=== PATIENT | female | born 1950 | race Caucasian/White ===

== ENCOUNTER → 2025-06-30 17:41 | Outpatient (REF) | payer MEDICARE, OTHER, SELFPAY ==
[2025-06-30 18:15] LABS: Hematocrit 37.5 % (37.0-47.0); Hemoglobin 12.7 g/dL (12.0-16.0); Mean Corp Hgb Conc. 33.9 g/dL (33.0-37.0); Mean Corpuscular Volume 94.2 fL (81.0-99.0); Nucleated Red Blood Cells % 1.0 %; Platelet Count 200 10^3/uL (130-400); Red Cell Dist. Width 12.3 % (11.5-14.5)
[2025-06-30 18:27] LABS: Blood Urea Nitrogen 17 mg/dl (7-17); Calcium 8.9 mg/dl (8.4-10.2); Carbon Dioxide 27 mmol/L (22-30); Chloride 105 mmol/L (98-107); Glucose 79 mg/dl (70-99); HDL Cholesterol 61 mg/dl; LDL Cholesterol, Calculated 126 mg/dl; Potassium 4.0 mmol/L (3.5-5.1); Sodium 139 mmol/L (135-145); Very Low Density Lipoprotein 25 mg/dl (0-30); eGFR > 60.00
[2025-06-30 18:45] LABS: Vitamin D, 25-OH*** 39.8 ng/mL (30-80)
[2025-06-30 18:58] LABS: TSH 1.08 uIU/ml (0.47-4.68)
[2025-07-01 12:20] LABS: Glycohemoglobin (HgbA1c) 5.5 % (4.0-5.6)
== END ==
LOC: OLABSOL 17:41
PROVIDERS: ATTENDING PHYSICIAN Nurse Practitioner Adult Health
DX: E11.65 Type 2 diabetes mellitus with hyperglycemia (principal); R73.03 Prediabetes; E55.9 Vitamin D deficiency, unspecified; R94.6 Abnormal results of thyroid function studies; R79.9 Abnormal finding of blood chemistry, unspecified
CPT/HCPCS: 36415; 80048; 80061; 82306; 83036; 84439; 84443; 85025

== ENCOUNTER 2025-08-13 01:04 | Emergency (ER) | payer MEDICARE, OTHER, SELFPAY ==
[2025-08-13 01:06] VITALS: BP 143/66
--- NOTE | 2025-08-13 01:59 | ED.GENMED ---
History of Present Illness
General
Chief Complaint: Skin Problem
Source: patient
Exam Limitations: none
Time Seen by Provider: 08/13/25 01:25
History of Present Illness
History of Present Illness:
See MDM
Past History
Past History
ED Past Medical History: None
ED Past Surgical History: None
Social History
Tobacco: Non-smoker
Alcohol: None
Phy Exam
Physical Exam
Physical Exam:
See MDM
Course
Orders/Labs/Results
Orders:
Orders
08/13/25 01:57
Dexamethasone Pf [Decadron] 10 mg PO NOW STA
Ibuprofen [Motrin] 600 mg PO NOW STA
Sulfamethox./Trimethoprim Ds [Bactrim Ds 800 mg/160 mg] 1 tablet PO NOW STA
Vital Signs
Initial and Last Documented VS:
Initial Vital Signs
Temp Pulse Resp BP Pulse Ox
98.5 F 87 16 143/66 96
08/13/25 01:06 08/13/25 01:06 08/13/25 01:06 08/13/25 01:06 08/13/25 01:06
Last Documented Vital Signs
Temp Pulse Resp BP Pulse Ox
98.5 F 82 18 143/66 95
08/13/25 01:06 08/13/25 01:15 08/13/25 01:15 08/13/25 01:06 08/13/25 01:15
MDM/Problems Addressed
Differential Diagnosis Includes:
Note:
CHIEF COMPLAINT(S)
Facial redness and blistering, with what appears to be an infected rash on the face.
HISTORY OF PRESENT ILLNESS
The patient is a 74-year-old female presenting with a facial rash characterized by redness, blistering, and what appears to be an infection. Two weeks ago, she developed some redness around her mouth for which she was given a cream, possibly
Kenalog. There is now worsening of symptoms with yellow crusting and blistering over her forehead and chin. The yellow crusting began in the last 48 hours. She describes the area as painful and bothersome.
The patient reports possible sensitivity to sunscreen and is also allergic to penicillin. There is no significant past medical history of autoimmune disorders such as lupus. There are no known kidney issues. The infections have made the patient feel
much older and weaker.
On inquiry, she denies any blistering or issues with her hands, indicating that the rash is localized to her face, with no reported similar reaction in her life. The infection could be caused by a secondary bacterial invasion of the rash,
potentially impetigo or cellulitis.
PAST MEDICAL AND SURGICAL HISTORY
No significant history of autoimmune conditions like lupus reported. Allergic to penicillin.
SOCIAL DETERMINANTS OF HEALTH
The patient is concerned about susceptibility due to a potential breakdown of skin barriers, but there are no specific social determinants affecting her current health status noted in the visit.
PHYSICAL EXAM
General: Alert, no acute distress.
Skin: Warm, dry. - Yellow crusting and blistering present on the forehead and chin. - Redness and swelling noted in the affected areas.
Head: Normocephalic, atraumatic
Neck: Appears supple, trachea midline.
Eyes, Ears, Nose, Mouth, and Throat: Moist mucous membranes
Cardiovascular: No signs of cyanosis
Respiratory: Respirations are non-labored.
Abdomen: Non-distended
Musculoskeletal: No deformities
Neurological: No focal neurological deficit observed.
Psychiatric: Cooperative, appropriate mood and affect.
PLAN
- Start treatment with antibiotics, specifically trimethoprim-sulfamethoxazole (Bactrim), to address possible skin infection.
- Administer a dose of dexamethasone (Decadron) to reduce inflammation and swelling.
- Provide a dose of ibuprofen for pain relief.
- Monitor for improvement within the next 24 hours. If no improvement or worsening, consider reevaluation for alternative diagnoses like lupus or a more aggressive infection like erysipelas.
DIFFERENTIAL DIAGNOSIS
The Differential Diagnosis includes, in no particular order and is not limited to:
- Impetigo
- Cellulitis
- Allergic contact dermatitis
- Lupus erythematosus
- Erysipelas
- Sunburn or photodermatitis
- Drug reaction
- Herpes simplex infection
- Seborrheic dermatitis
- Fungal infection
SUMMARY OF ENCOUNTER
The patient presented with a facial rash that had worsened over two weeks. Initially, there was redness around the mouth, treated previously with a cream likely containing Kenalog, but now the patient reports painful yellow crusting and blistering.
Suspecting a bacterial skin infection, treatment was initiated with trimethoprim-sulfamethoxazole and dexamethasone to address inflammation.
DISPOSITION
Patient discharged with outpatient follow-up instructions.
EMERGENCY TREATMENTS ADMINISTERED
- Trimethoprim-sulfamethoxazole (Bactrim) for infection.
- Dexamethasone (Decadron) for swelling.
- Ibuprofen for pain management.
PATIENT EDUCATION AND COUNSELING
The patient was advised regarding the nature of her condition potentially being a skin infection. Counseling was provided on the importance of completing the antibiotic course and monitoring the rash for signs of improvement. Education on avoiding
potential allergens such as sunscreen was also provided.
FOLLOW-UP INSTRUCTIONS
Regular monitoring of symptoms. Instructed to seek medical attention if symptoms worsen or do not improve in 24-48 hours.
MEDICATION RECONCILIATION
- Administered a dose of trimethoprim-sulfamethoxazole (Bactrim).
- Dexamethasone (Decadron) orally.
- Ibuprofen for pain relief.
MEDICAL DECISION MAKING
- Complexity of Data Reviewed:
Chronic conditions affecting care possibly linked to sensitivity to certain skin products; Differential Diagnosis includes skin infections like impetigo, cellulitis, erysipelas, and potential allergic reactions.
- Data:
Category 1:
No non-emergency department records were reviewed.
- Risk:
Prescription medication was prescribed for infection and inflammation treatment.
DIAGNOSIS
- Impetigo or cellulitis (L01.00, L03.90)
- Possible allergic contact dermatitis (L23.9)
- Erythematous rash secondary to unknown etiology, potential bacterial superinfection (R21)
Disposition:
SUMMARY OF ENCOUNTER
The patient presented with facial erythema, pain, and sparing of the upper lip. Initial concerns included an allergic reaction to iron or suntan lotion, though this was uncertain. The presence of yellow crusting raised concerns for impetigo, but
cellulitic changes could not be ruled out. A one-time dose of dexamethasone was administered to address inflammation, and trimethoprim-sulfamethoxazole was started to treat a suspected bacterial skin infection. Return precautions were given.
PLAN
Administer trimethoprim-sulfamethoxazole for suspected bacterial skin infection. Monitor for improvement and advise return if symptoms do not improve or worsen.
PATIENT EDUCATION AND COUNSELING
The patient was informed of the potential skin infection and the importance of monitoring her condition for changes. Return precautions were discussed.
MEDICATION RECONCILIATION
- Administered one-time dose of dexamethasone (Decadron).
- Prescribed trimethoprim-sulfamethoxazole (Bactrim) for bacterial skin infection.
MEDICAL DECISION MAKING
- Number and Complexity of Problems Addressed: Chronic conditions affecting care - included potential sensitivity to skin products. Differential diagnosis included impetigo, cellulitis, allergic contact dermatitis, lupus erythematosus, erysipelas,
sunburn or photodermatitis, drug reaction, herpes simplex infection, seborrheic dermatitis, and fungal infection.
- Data:
- Category 1: Clinical concern for impetigo and cellulitis were discussed as part of potential differential diagnoses.
- No independent historians or external notes were applicable.
- Risk: Prescription drug management was initiated with antibiotics and anti-inflammatory medication.
DIAGNOSIS
- Impetigo (L01.00)
- Cellulitis (L03.90)
- Possible allergic contact dermatitis (L23.9)
*Pulse Oximetry
SaO2: 95
Oxygen Mode of Delivery: Room air
Patient hypoxic: no
*Critical Care Note
Total Time (30-74mins, 75-104mins- exclusive of procedures): Not Applicable
ED Attending Note
-
Portions of this chart may have been created with voice recognition software.� Occasional wrong word or��sound alike� substitutions may have occurred due to the inherent limitations of voice recognition software.
Discharge Plan
Departure
Patient Disposition: Home (Routine Discharge)
Date of Disposition: 08/13/25
Time of Disposition: 02:00
Patient with high blood pressure during this ER visit?: No
Discharge Problem:
Facial cellulitis
Instructions: Cellulitis (Skin Infection), Adult (DC)
Prescriptions:
New
sulfamethoxazole-trimethoprim [Bactrim DS] 800-160 mg tablet
1 tab PO BID 7 Days Qty: 14 0RF
Referrals:
UNKNOWN - PT DOES,NOT KNOW [Family Provider]
Activity Restrictions/Additional Instructions:
Watch for worsening signs of infection: fever over 100.5', increasing pain, red streaks around wound, swelling, or increasing drainage of pus. If any of these happen, return to ED promptly. Make sure that you take all your antibiotics as directed
and finish your prescription even if you feel better before the bottle is empty
Interventions
Interventions:
*Risk Screen - Suicide Last Done: 08/13/25 01:12
*General Assessment Last Done: 08/13/25 01:12
*Neglect/Abuse Screening Last Done: 08/13/25 01:12
*ED- Fall Risk Assessment Last Done: 08/13/25 01:16
*ED COVID-19 Vaccine History Last Done: 08/13/25 01:11
*ED Influenza Vaccine History Last Done: 08/13/25 01:11
ED-Skin Assessment Last Done: 08/13/25 01:14
Discharge Date and Time
Print Language: FIJIAN
[2025-08-13] MEDS: BACTRIM DS 800 MG/160 MG 1 TABLET PO (02:01)
[2025-08-13] MEDS: MOTRIN 600 MG PO (02:01)
[2025-08-13] MEDS: DECADRON 10 MG PO (02:01)
[2025-08-13 02:15] VITALS: BP 135/60
== END 2025-08-13 02:16 | disposition home or self-care (01) ==
LOC: EMR 01:04
PROVIDERS: EMERGENCY PHYSICIAN Student in an Organized Health Care Education/Training Program
DX: L03.211 Cellulitis of face (principal); Z88.0 Allergy status to penicillin
CPT/HCPCS: 99283

== ENCOUNTER → 2025-08-28 11:30 | Outpatient (REF) | payer MEDICARE, OTHER, SELFPAY ==
[2025-08-29 16:53] LABS: Urine Character Clear (Clear)
[2025-08-29 17:00] LABS: Urine Squamous Cell >30 /LPF (Few)
[2025-08-29 17:02] LABS: Urine Red Blood Cell 0-2 /HPF (0-2); Urine White Cell 16-20 /HPF (0-5)
== END ==
LOC: OLABSOL 11:30
PROVIDERS: ATTENDING PHYSICIAN Nurse Practitioner Adult Health
DX: I10 Essential (primary) hypertension (principal)
CPT/HCPCS: 81003; 81015

== ENCOUNTER → 2025-08-30 09:37 | Outpatient (REF) | payer MEDICARE, OTHER, SELFPAY ==
[2025-08-30 10:32] LABS: Hematocrit 42.0 % (37.0-47.0); Hemoglobin 13.9 g/dL (12.0-16.0); Mean Corp Hgb Conc. 33.1 g/dL (33.0-37.0); Mean Corpuscular Volume 95.0 fL (81.0-99.0); Nucleated Red Blood Cells % 0 %; Platelet Count 230 10^3/uL (130-400); Red Cell Dist. Width 12.0 % (11.5-14.5)
[2025-08-30 10:44] LABS: Blood Urea Nitrogen 21 mg/dl (7-17); Calcium 9.6 mg/dl (8.4-10.2); Carbon Dioxide 31 mmol/L (22-30); Chloride 105 mmol/L (98-107); Glucose 105 mg/dl (70-99); Magnesium 2.2 mg/dl (1.6-2.3); Potassium 4.0 mmol/L (3.5-5.1); Sodium 142 mmol/L (135-145); eGFR > 60.00
[2025-08-30 11:13] LABS: TSH 1.88 uIU/ml (0.47-4.68)
== END ==
LOC: OLABSOL 09:37
PROVIDERS: ATTENDING PHYSICIAN Nurse Practitioner Adult Health
DX: I10 Essential (primary) hypertension (principal)
CPT/HCPCS: 36415; 80048; 83735; 84443; 85025